=== PATIENT | male | born 1995 | race Hispanic/Latino ===

== ENCOUNTER 2023-12-12 22:55 | Emergency (ER) | payer SELFPAY ==
--- NOTE | ~2023-12-12 | CT_ITS ---
Non-contrast Head CT History: Syncope, headache Technique: Axial non-contrast imaging of the brain was performed. Dose reduction technique was used on this scan by utilizing automated exposure control and iterative reconstruction technique. The dose -length product (DLP) was 1210.67 mGy-cm. Findings: There is no evidence of intracranial hemorrhage, mass lesion, or acute infarct. Brain par enchyma appears normal. The ventricles and subarachnoid spaces are normal in size. The calvarium ap pears normal. The visualized paranasal sinuses and mastoid air cells are clear. Impression: No significant abnormality seen. Reviewed, dictated and finalized at location . Impression: No significant abnormality seen.
--- NOTE | ~2023-12-12 | XR_ITS ---
Portable chest x-ray Comparison: None Clinical History: Syncope Findings: Lungs are clear, without focal consolidation or pleural effusion. Cardiomediastinal silho uette is unremarkable. Bones and soft tissues are unremarkable. Impression: Clear lungs. Reviewed, dictated and finalized at location M. Impression: Clear lungs.
[2023-12-12 23:00] VITALS: BP 164/111; PULSE 92; TEMP 37.2; O2SAT 99
[2023-12-13 00:37] VITALS: BP 134/87; PULSE 76; RESP 18; O2SAT 98
[2023-12-13] MEDS: SODIUM CHLORIDE 0.9% IV 1,000 ML 999 ML IV CONT ×3 (00:41→03:46)
[2023-12-13 00:46] LABS: Basophils Absolute Auto 0.1 K/mm3 (0.0-0.1); Basophils Percent Auto 0.6 % (0.2-1.2); Eosinophils Absolute Auto 0.1 K/mm3 (0-0.3); Eosinophils Percent Auto 1.3 % (0-4.4); Hematocrit 45.7 % (42.0-52.0); Hemoglobin 15.6 g/dL (14.0-18.0); Immature Granulocyte Absolute 0.05 K/mm3 (0.00-0.031); Immature Granulocyte Percent A 0.6 % (0-0.5); Lymphocytes Absolute Auto 2.54 K/mm3 (0.9-3.2); Lymphocytes Percent Auto 29.5 % (18.3-44.2); Mean Corpuscular HGB Conc 34.1 g/dl (32-36); Mean Corpuscular Hemoglobin 29.5 pg (26-34); Mean Corpuscular Volume 86.4 fl (80-100); Mean Platelet Volume 9.5 fl (7.4-10.4); Monocytes Absolute Auto 0.9 K/mm3 (0.1-0.6); Monocytes Percent Auto 10.8 % (2.6-8.5); Neutrophils Absolute Auto 4.9 K/mm3 (1.3-6.7); Neutrophils Percent Auto 57.2 % (45.5-73.1); Platelet Count Result 236 k/mm3 (150-375); Red Blood Count 5.29 M/mm3 (4.6-6.20); Red Cell Distribution Width 12.9 % (11.5-14.5); White Blood Count 8.6 K/mm3 (4.5-10.0)
--- NOTE | 2023-12-13 00:52 | ECG_ITS ---
Test Date: 2023-12-13 01:19:18 Measurements Intervals [place] Rate: 78 P: 42 AR: 136 QRS: 24 QRSD: 105 T: 12 QT: 368 QTc: 422 Interpretive Statements SINUS RHYTHM NORMAL ECG No previous ECG available for comparison Electronically Signed On 12-13-2023 06:31:37 CDT by Rosas Sorensen D.O.
[2023-12-13 00:57] LABS: Alanine Aminotransferase 23 U/L (6-50); Albumin Level 4.5 g/dL (3.5-5.1); Alkaline Phosphatase 89 U/L (38-126); Anion Gap 11 mmol/L (4-12); Aspartate Amino Transferase 32 U/L (17-59); Bilirubin,Total 1.1 mg/dL (0.2-1.3); Blood Urea Nitrogen 20 mg/dL (9-20); Carbon Dioxide 26 mmol/L (22-30); Chloride 102 mmol/L (98-107); Estimated CRCL calculation 109 ml/min; Estimated Glomerular Filt Rate > 60; Glucose 101 mg/dL (65-110); Lipase 46 U/L (23-300); Potassium 3.5 mmol/L (3.4-5.0); Sodium 139 mmol/L (137-145)
[2023-12-13] MEDS: diphenhydrAMINE HCl INJ 50 MG/ML VIAL 25 MG IV PUSH (00:57)
[2023-12-13] MEDS: PROCHLORPERAZINE EDISYLATE 10 MG/2 ML VIAL IV PUSH (00:57)
[2023-12-13] MEDS: ACETAMINOPHEN 500 MG TABLET 1000 MG PO (00:57)
--- NOTE | 2023-12-13 01:22 | ED.NAVMDI ---
HPI - Nausea/Vomiting/Diarrhea General Chief complaint: Nausea/Vomiting/Diarrhea <Sindi Hu PA-C - Last Filed: 12/13/23 03:04> Stated complaint: heat exhaustion <BETTY Jones Last Filed: 12/13/23 03:04> Time Seen by Provider: 12/13/23 00:15 <BETTY Jones Last Filed: 12/13/23 03:04> History of Present Illness HPI Narrative: 28-year-old [place]-speaking male presents emergency department for heat exhaustion. 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 States he laid down and believes he lost consciousness because he woke up a minute later. States he has been having a bitemporal headache with photophobia since as well as nausea, vomiting and weakness. He is also reporting diffuse low back pain. He denies dysuria or hematuria, fever, diarrhea, abdominal pain, chest pain or shortness of breath. He has no prior medical history. <Sindi Hu PA-C - Last Filed: 12/13/23 03:04> Related Data Allergies/Adverse reactions: Allergies Allergy/AdvReac Type Severity Reaction Status Date / Time No Known Allergies Allergy Verified 12/12/23 22:59 <Sindi Hu PA-C - Last Filed: 12/13/23 03:04> Review of Systems Review of Systems: All systems reviewed & are unremarkable except as noted in HPI and below <BETTY Jones Last Filed: 12/13/23 03:04> Exam Narrative: GENERAL: Well-appearing, well-nourished, and in no acute distress. HEAD: Normocephalic, atraumatic. EYES: PERRLA and EOMI. ENT: Nares clear, no rhinorrhea or epistaxis. Mucous membranes moist. NECK: Supple. CHEST: Clear to auscultation. No respiratory distress. HEART: Regular rate and rhythm. No murmur heard. Normal peripheral pulses. ABDOMEN: Soft, nontender, nondistended, normal active bowel sounds. EXTREMITIES: Normal range of motion. No edema. SKIN: Warm, dry, no rash. NEURO: No focal deficits. Alert and oriented x3. Moving all extremities spontaneously <Sindi Hu PA-C - Last Filed: 12/13/23 03:04> Course Course Emergency Course: Translating services used throughout patient's ED stay <Sindi Hu PA-C - Last Filed: 12/13/23 03:04> Vital Signs Vital signs: Vital Signs Temperature 99 F 12/12/23 23:00 Pulse Rate 92 12/12/23 23:00 Blood Pressure 164/111 H 12/12/23 23:00 Pulse Oximetry 99 12/12/23 23:00 Oxygen Delivery Room Air 12/12/23 23:00 Temperature 99 F 12/12/23 23:00 Pulse Rate 70 12/13/23 01:53 Respiratory Rate 18 12/13/23 01:53 Blood Pressure 116/93 H 12/13/23 01:53 Pulse Oximetry 98 12/13/23 01:53 Oxygen Delivery Room Air 12/13/23 00:37 <Sindi Hu PA-C - Last Filed: 12/13/23 03:04> Vital Signs Temperature 99 F 12/12/23 23:00 Pulse Rate 92 12/12/23 23:00 Blood Pressure 164/111 H 12/12/23 23:00 Pulse Oximetry 99 12/12/23 23:00 Oxygen Delivery Room Air 12/12/23 23:00 Temperature 99 F 12/12/23 23:00 Pulse Rate 70 12/13/23 01:53 Respiratory Rate 18 12/13/23 01:53 Blood Pressure 116/93 H 12/13/23 01:53 Pulse Oximetry 98 12/13/23 01:53 Oxygen Delivery Room Air 12/13/23 00:37 <Refugio Dupree DO - Last Filed: 12/13/23 05:23> MDM - Nausea/Vomiting/Diarrhea MDM Narrative Medical decision making narrative: 28-year-old male presents to emergency department for heat exhaustion and a possible episode of syncope that occurred today while he was out in the heat at work. Patient states he lowered himself to the ground prior to losing consciousness. He has been having headache, weakness and fatigue, lightheadedness, nausea and vomiting since. Triage vital significant for hypertension of 164/111 which has since improved to 134/87 without intervention. He is afebrile and nontoxic appearing. Exam is significant for the above. Will obtain labs, ekg, trop, CT brain given syncope and head
[2023-12-13 01:53] VITALS: BP 116/93; PULSE 70; RESP 18; O2SAT 98
[2023-12-13 02:32] LABS: Troponin I < 0.012 ng/mL (0.000-0.034)
[2023-12-13 03:10] LABS: Creatine Kinase 668 U/L (55-170)
[2023-12-13 04:55] LABS: Appearance Urine Clear (Clear); Bilirubin Urine Negative (Negative); Blood Urine Negative (Negative); Color Urine Yellow (Yellow); Glucose Urine UA Negative (Negative); Ketones Urine Negative (Negative); Leukocyte Esterase Ur Negative LEU/UL (Negative); Nitrate Urine Negative (Negative); Protein Urine Negative (Negative); Specific Grav Ur 1.023 (1.001-1.035); pH Urine 5.5 (5.0-9.0)
[2023-12-13 05:18] LABS: Add Urine Microscopic? NO
[2023-12-13 05:19] LABS: Creatine Kinase 562 U/L (55-170)
[2023-12-13 06:01] VITALS: BP 145/90; PULSE 67; RESP 18; O2SAT 98
== END 2023-12-13 06:01 | disposition home or self-care (01) ==
PROVIDERS: Physician Assistant; Emergency Provider Student in an Organized Health Care Education/Training Program
DX: T67.5XXA Heat exhaustion, unspecified, initial encounter (principal)
CPT/HCPCS: 36415; 70450; 71045; 80053; 81003; 82550; 83690; 83735; 84484; 85025; 93005; 96361; 96374; 96375; 99284; A9270; J0780; J1200; J7030